=== PATIENT | female | born 1955 | race Two or more races ===

== ENCOUNTER 2017-07-28 12:15 | Emergency (ER) | payer MEDICAID ==
[~2017-07-28] VITALS: Ht 152.4 cm; Wt 81.6 kg
[~2017-07-28 12:15] MED LIST: GLIP10TA82; HYDR-4683; METF-86; PRED10PA7; [UNRECOGNIZED DRUG - CODE]
[2017-07-28 13:30] LABS: Basophils # (auto) 0 uL; Eosinophils # (auto) 0 uL; Lymphocytes # (auto) 1.1 uL; Mean Corpuscular Hgb Conc. 31.8 g/dL (32.0-36.0); Monocytes # (auto) 0.3 uL; Neutrophils # (auto) 1.4 uL; Platelet Count (auto) 251 10^3/uL (140-450)
[2017-07-28 13:32] LABS: Hematocrit 38.4 % (36.0-46.0); Hemoglobin 12.2 g/dL (12.2-16.2); Lymphocytes % (auto) 37.7 % (10.0-50.0); Mean Corpuscular Hemoglobin 24.8 pg (28.0-32.0); Mean Corpuscular Volume 78.2 fL (80.0-100.0); Monocytes % (auto) 10.9 % (0.0-12.0); Neutrophils % (auto) 49.4 % (37.0-80.0); Nucleated Red Blood Cells % 0.2 %; White Blood Cell 2.8 10^3/uL (4.4-10.8)
[2017-07-28 13:45] LABS: Alanine Aminotransferase 43 U/L (13-56); Albumin 3.4 g/dL (3.4-5.0); Anion Gap 9 (5-15); BUN/Creatinine Ratio 12.6; Blood Urea Nitrogen 12 mg/dL (7-18); Calcium 8.4 mg/dL (8.5-10.1); Carbon Dioxide 24 mmol/L (21-32); Chloride 97 mmol/L (98-107); GFR African American 77 mL/min; GFR Non-African American 64 mL/min; Glucose 374 mg/dL (74-106); Potassium 4.2 mmol/L (3.5-5.1); Sodium 130 mmol/L (136-145)
[2017-07-28 13:47] LABS: Urine Bacteria NONE SEEN /hpf (None Seen); Urine Blood Negative /uL (Negative); Urine Hyaline Cast MOD /lpf (0 - 2); Urine Mucus FEW (None Seen); Urine Specific Gravity 1.024 (1.001-1.035); Urine WBC 2 /hpf (0 - 5)
[2017-07-28 13:54] LABS: Alkaline Phosphatase 63 U/L (45-117); Aspartate Aminotransferase 34 U/L (15-37); Bilirubin, Total 0.3 mg/dL (0.2-1.0); Total Protein 9.9 g/dL (6.4-8.2)
[2017-07-29] MEDS ORDERED: cefTRIAXone SOD 1,000 MG VL IM ONE (03:00)
[2017-07-29] MEDS ORDERED: ONDANSETRON HCL 4 MG/2 ML VIAL IM ONE (03:00)
[2017-07-29] MEDS ORDERED: MORPHINE SULFATE 4 MG/ML SYR/VIAL IM ONE (03:00)
[2017-07-29] MEDS ORDERED: NALBUPHINE HCL 10 MG/1ml INJECTION ONE (03:02)
[2017-07-29] MEDS ORDERED: NALBUPHINE HCL 10 MG/1ml INJECTION IM ONE (03:30)
[2017-07-29 04:00] VITALS: BP 131/82
== END 2017-07-29 06:10 | disposition home or self-care (01) ==
LOC: ER 12:15
DX: J32.9 Chronic sinusitis, unspecified (principal); E11.65 Type 2 diabetes mellitus with hyperglycemia; E87.1 Hypo-osmolality and hyponatremia
CPT/HCPCS: 36415; 70450; 80053; 81001; 82962; 84484; 85025; 96372; 99285; J0696; J2300; J2405

== ENCOUNTER → 2024-04-21 | Outpatient (CLI) | payer MEDICAID ==
[~2024-04-21] MED LIST changes: +GLIP10TA3; -GLIP10TA82; -HYDR-4683; +HYDR-4833
== END | disposition home or self-care (01) ==
LOC: Rad HDHVI 13:17
PROVIDERS: ATTEND Internal Medicine Cardiovascular Disease
DX: R07.89 Other chest pain (principal)
CPT/HCPCS: 93880

== ENCOUNTER → 2024-05-02 | Outpatient (CLI) | payer MEDICAID | END | disposition home or self-care (01) | LOC: Rad HDHVI 12:47 | PROVIDERS: ATTEND Internal Medicine Cardiovascular Disease | DX: R07.89 Other chest pain (principal) | CPT/HCPCS: 93306 ==

== ENCOUNTER → 2024-05-09 | Outpatient (CLI) | payer MEDICAID ==
[~2024-05-09] VITALS: Ht 157.5 cm; Wt 84.4 kg
[~2024-05-09] MED LIST changes: +ADENOSINE 71 MG in GIVE UN-DILUTED 0 ML IV ONE; +ADENOSINE 90 MG/30 ML INJ IV ONE
== END | disposition home or self-care (01) ==
LOC: Rad HDHVI 09:26
PROVIDERS: ATTEND Internal Medicine Cardiovascular Disease
DX: I10 Essential (primary) hypertension (principal); R07.89 Other chest pain; E11.9 Type 2 diabetes mellitus without complications; E78.00 Pure hypercholesterolemia, unspecified; F17.210 Nicotine dependence, cigarettes, uncomplicated
CPT/HCPCS: 78452; 93017; 96374; A9500; J0153